=== PATIENT | male | born 1960 | race Caucasian/White ===

== ENCOUNTER 2017-02-01 12:41 | Emergency (ER) | payer OTHER ==
[2017-02-01 12:49] VITALS: TEMP 97.6; BMI 33.5
[2017-02-01] MEDS ORDERED: morphine CARPU-JECT 4 MG/1 ML DISP.SYRIN IVPUSH ONE (13:04)
[2017-02-01] MEDS ORDERED: ONDANSETRON 4 MG/2 ML VIAL IVPUSH ONE (13:04)
[2017-02-01] MEDS ORDERED: SODIUM CHLORIDE 1,000 ML IV STA (13:04)
[2017-02-01] MEDS ORDERED: morphine CARPU-JECT 4 MG/1 ML DISP.SYRIN ONE (13:05)
[2017-02-01] MEDS ORDERED: ONDANSETRON 4 MG/2 ML VIAL ONE (13:06)
[2017-02-01 13:13] LABS: URINE APPEARANCE SLCLOUDY; URINE BILIRUBIN NEGATIVE (NEGATIVE); URINE BLOOD 3+ (NEGATIVE); URINE COLOR YELLOW; URINE GLUCOSE (UA) NEGATIVE (NEGATIVE); URINE KETONE NEGATIVE (NEGATIVE); URINE LEUK ESTERASE NEGATIVE (NEGATIVE); URINE NITRITE NEGATIVE (NEGATIVE); URINE UROBILINOGEN NEGATIVE mg/dL (0.2-1.0)
[2017-02-01 13:15] LABS: BASOPHIL 0.3 % (0-2.0); EOSINOPHIL 0.2 % (0-4.5); MCH 28.6 pg (25.7-33.7); MCHC 33.2 g/dl (32.0-35.9); MEAN CELL VOLUME 86.2 fl (80-96); MEAN PLT VOLUME 7.9 fl (7.5-11.1); NEUTROPHILS 85.9 % (42.8-82.8); PLATELET COUNT 206 K/MM3 (134-434); WHITE BLOOD COUNT 10.3 K/mm3 (4.0-10.0)
[2017-02-01 13:27] LABS: URINE PROTEIN 1+ (NEGATIVE)
[2017-02-01 13:35] LABS: ALBUMIN 4.1 g/dl (3.4-5.0); ANION GAP 5 (8-16); BILIRUBIN,TOTAL 0.3 mg/dL (0.2-1.0); CALCIUM 10.8 mg/dL (8.5-10.1); CO2 32 mmol/L (21-32); CREATININE 1.2 mg/dL (0.7-1.3); GLUCOSE,RANDOM 102 mg/dL (74-106); SGOT/AST 16 U/L (15-37); SGPT/ALT 29 U/L (12-78); TOT PROT 7.6 g/dl (6.4-8.2)
[2017-02-01 13:36] LABS: ALK PHOS 78 U/L (45-117)
[2017-02-01 13:42] LABS: URINE HYALINE CAST 15 /lpf; URINE MUCUS FEW; URINE RBC 260 /hpf (0-3); YEAST FEW
--- NOTE | 2017-02-01 16:02 | PDOC ---
History of Present Illness - General History Source: Patient Exam Limitations: No Limitations - History of Present Illness Initial Comments: 02/01/17 16:02 The patient is a 56 year old male, with a significant past medical history of, who presents to the emergency department complaining of right groin pain radiating into the right flank since earlier this morning. The patient reports the pain began suddenly, and he describes it as if someone hit him on the kidney with a hammer. The patient reports the pain is similar to the kidney stone pain he has had in the past. He denies any dysuria, hematuria, frequency, or urgency. The patient reports he has followed up with urology in the past, during which the doctor recommended he purchase medications to increase urinary frequency. Patient states urologist told him he will continue to produce kidney stones. The patient denies any fever, chills, headache, or dizziness. He denies any nausea, vomiting, diarrhea, or constipation. He denies any recent travel or sick contacts. Allergies: NKDA Past Surgical History: None reported. Social History: Non smoker. No ETOH or drug use <Erik Lee - Last Filed: 02/01/17 16:02> <Vadim Palomino - Last Filed: 02/01/17 16:11> - General Chief Complaint: Pain Stated Complaint: BACK PAIN Time Seen by Provider: 02/01/17 13:04 Past History <Erik Lee - Last Filed: 02/01/17 16:02> - Past Medical History Kidney Stones: Yes Seizures: Yes - Psycho/Social/Smoking Cessation Hx Suicidal Ideation: No Smoking History: Never smoked Information on smoking cessation initiated: No <Vadim Palomino - Last Filed: 02/01/17 16:11> - Past Medical History Allergies/Adverse Reactions: Allergies Allergy/AdvReac Type Severity Reaction Status Date / Time No Known Allergies Allergy Verified 02/01/17 12:49 Home Medications: Ambulatory Orders Levetiracetam [Keppra -] 500 mg PO BID 02/01/17 Ondansetron [Zofran Odt -] 4 mg SL TID #21 od.tablet 02/01/17 Oxycodone HCl/Acetaminophen [Percocet 5-325 mg Tablet] 1 tab PO Q6H #20 tablet MDD 4 02/01/17 Review of Systems - Review of Systems Able to Perform ROS?: Yes Comments:: 02/01/17 16:03 GENERAL/CONSTITUTIONAL: No fever or chills. No weakness. HEAD, EYES, EARS, NOSE AND THROAT: No change in vision. No ear pain or discharge. No sore throat. CARDIOVASCULAR: No chest pain or shortness of breath. RESPIRATORY: No cough, wheezing, or hemoptysis. GASTROINTESTINAL: No nausea, vomiting, diarrhea or constipation. GENITOURINARY: Yes: +Right flank pain. No dysuria, frequency, or change in urination. MUSCULOSKELETAL: Yes: +Right groin pain. No joint or muscle swelling or pain. No neck or back pain. SKIN: No rash NEUROLOGIC: No headache, vertigo, loss of consciousness, or change in strength/ sensation. ENDOCRINE: No increased thirst. No abnormal weight change. HEMATOLOGIC/LYMPHATIC: No anemia, easy bleeding, or history of blood clots. ALLERGIC/IMMUNOLOGIC: No hives or skin allergy. <Itzel Leeomilsnikhil - Last Filed: 02/01/17 16:02> *Physical Exam - Vital Signs Last Vital Signs Temp Pulse Resp BP Pulse Ox 97.6 F 56 L 18 157/100 96 02/01/17 12:42 02/01/17 12:42 02/01/17 12:42 02/01/17 12:42 02/01/17 12:42 - Physical Exam Comments: 02/01/17 16:03 GENERAL: Awake, alert, and fully oriented, in no acute distress HEAD: No signs of trauma EYES: PERRLA, EOMI, sclera anicteric, conjunctiva clear ENT: Auricles normal inspection, hearing grossly normal, nares patent, oropharynx clear without exudates. Moist mucosa NECK: Normal ROM, supple, no lymphadenopathy, JVD, or masses LUNGS: Breath sounds equal, clear to auscultation bilaterally. No wheezes, and no crackles HEART: Regular rate and rhythm, normal S1 and S2, no murmurs, rubs or gallops ABDOMEN: Soft, nontender, normoactive bowel sounds. No guarding, no rebound. No masses EXTREMITIES: Normal range of motion, no edema. No clubbing or cyanosis. No cords, erythema, or tenderness NEUROLOGICAL: Cranial nerves II through XII grossly intact. Normal speech, normal gait SKIN: Warm, Dry, normal turgor, no rashes or lesions noted. <Erik Lee - Last Filed: 02/01/17 16:02> - Vital Signs Last Vital Signs Temp Pulse Resp BP Pulse Ox 97.6 F 56 L 18 157/100 96 02/01/17 12:42 02/01/17 12:42 02/01/17 12:42 02/01/17 12:42 02/01/17 12:42 <Vadim Palomino - Last Filed: 02/01/17 16:11> ED Treatment Course - LABORATORY CBC & Chemistry Diagram: 02/01/17 13:00 02/01/17 13:00 - ADDITIONAL ORDERS Additional order review: Laboratory Results 02/01/17 02/01/17 13:00 13:00 Sodium 140 Potassium 4.1 Chloride 103 Carbon Dioxide 32 Anion Gap 5 L BUN 17 Creatinine 1.2 Creat Clearance w eGFR > 60 Random Glucose 102 Calcium 10.8 H Total Bilirubin 0.3 AST 16 ALT 29 Alkaline Phosphatase 78 Total Protein 7.6 Albumin 4.1 Urine Color Yellow Urine Appearance Slcloudy Urine pH 5.0 Urine Protein 1+ H Urine Glucose (UA) Negative Urine Ketones Negative Urine Blood 3+ H Urine Nitrite Negative Urine Bilirubin Negative Urine Urobilinogen Negative Ur Leukocyte Esterase Negative Urine RBC 260 Urine WBC None Ur Epithelial Cells Rare Hyaline Casts 15 Urine Mucus Few Urine Yeast Few 02/01/17 13:00 RBC 5.34 MCV 86.2 MCHC 33.2 RDW 14.0 MPV 7.9 Neutrophils % 85.9 H Lymphocytes % 10.0 Monocytes % 3.6 L Eosinophils % 0.2 Basophils % 0.3 - RADIOLOGY Radiograph Interpretation: 02/01/17 16:03 EXAM: Renal Stone CT INTERPRETED BY: Dr. Pantoja REVIEWED BY: Dr. Palomino IMPRESSION: A 5 mm proximal right ureteral calculus is seen with resultant mild hydronephrosis as discussed above. Bilateral nonobstructing renal calculi. - Medications Given in the ED: ED Medications Discontinued Medications Generic Name Dose Route Start Last Admin Trade Name Freq PRN Reason Stop Dose Admin Sodium Chloride 1,000 mls @ 1,000 mls/hr 02/01/17 13:04 02/01/17 13:13 Normal Saline - IV 02/01/17 14:03 1,000 mls/hr ASDIR STA Administration Morphine Sulfate 4 mg 02/01/17 13:04 02/01/17 13:13 Morphine Injection - IVPUSH 02/01/17 13:05 4 mg ONCE ONE Administration Ondansetron HCl 4 mg 02/01/17 13:04 02/01/17 13:13 Zofran Injection IVPUSH 02/01/17 13:05 4 mg ONCE ONE Administration <Erik Lee - Last Filed: 02/01/17 16:02> - LABORATORY CBC & Chemistry Diagram: 02/01/17 13:00 02/01/17 13:00 - ADDITIONAL ORDERS Additional order review: Laboratory Results 02/01/17 02/01/17 13:00 13:00 Sodium 140 Potassium 4.1 Chloride 103 Carbon Dioxide 32 Anion Gap 5 L BUN 17 Creatinine 1.2 Creat Clearance w eGFR > 60 Random Glucose 102 Calcium 10.8 H Total Bilirubin 0.3 AST 16 ALT 29 Alkaline Phosphatase 78 Total Protein 7.6 Albumin 4.1 Urine Color Yellow Urine Appearance Slcloudy Urine pH 5.0 Urine Protein 1+ H Urine Glucose (UA) Negative Urine Ketones Negative Urine Blood 3+ H Urine Nitrite Negative Urine Bilirubin Negative Urine Urobilinogen Negative Ur Leukocyte Esterase Negative Urine RBC 260 Urine WBC None Ur Epithelial Cells Rare Hyaline Casts 15 Urine Mucus Few Urine Yeast Few 02/01/17 13:00 RBC 5.34 MCV 86.2 MCHC 33.2 RDW 14.0 MPV 7.9 Neutrophils % 85.9 H Lymphocytes % 10.0 Monocytes % 3.6 L Eosinophils % 0.2 Basophils % 0.3 - RADIOLOGY Radiology Studies Ordered: Category Date Time Status SPIRAL- RENAL-STONE CT [CT] Stat CT Scan 02/01/17 13:36 Completed - Medications Given in the ED: ED Medications Discontinued Medications Generic Name Dose Route Start Last Admin Trade Name Freq PRN Reason Stop Dose Admin Sodium Chloride 1,000 mls @ 1,000 mls/hr 02/01/17 13:04 02/01/17 13:13 Normal Saline - IV 02/01/17 14:03 1,000 mls/hr ASDIR STA Administration Morphine Sulfate 4 mg 02/01/17 13:04 02/01/17 13:13 Morphine Injection - IVPUSH 02/01/17 13:05 4 mg ONCE ONE Administration Ondansetron HCl 4 mg 02/01/17 13:04 02/01/17 13:13 Zofran Injection IVPUSH 02/01/17 13:05 4 mg ONCE ONE Administration <Vadim Palomino - Last Filed: 02/01/17 16:11> *DC/Admit/Observation/Transfer - Attestations Scribe Attestion: 02/01/17 16:03 Documentation prepared by Erik Lee, acting as vice president medical affairs for Vadim Palomino DO. <Erik Lee - Last Filed: 02/01/17 16:02> - Discharge Dispostion Admit: No - Attestations Physician Attestion: 02/01/17 16:11 I, Dr. Vadim Palomino, attest that this document has been prepared under my direction and personally reviewed by me in its entirety. I further attest, that it accurately reflects all work, treatment, procedures and medical decision -making performed by me. <Vadim Palomino - Last Filed: 02/01/17 16:11> Diagnosis at time of Disposition: Kidney stone - Prescriptions Prescriptions: Oxycodone HCl/Acetaminophen [Percocet 5-325 mg Tablet] 1 tab PO Q6H #20 tablet MDD 4 Ondansetron [Zofran Odt -] 4 mg SL TID #21 od.tablet - Patient Instructions Printed Discharge Instructions: DI for Kidney Stones Additional Instructions: Emeka- Call Dr. Reynoso tomorrow and take the first available appointment. This stone may not pass on its own. Return to us if worse or new symptoms occur, Best- Vadim Mancia
[2017-02-01 16:35] VITALS: BP 148/99; PULSE 60
== END 2017-02-01 17:03 | disposition home or self-care (01) ==
LOC: JER 12:41
PROC: 3E033NZ Introduction of Analgesics, Hypnotics, Sedatives into Peripheral Vein, Percutaneous Approach (ICD-10-PCS; principal; 2017-02-01)
PROC: 3E033GC Introduction of Other Therapeutic Substance into Peripheral Vein, Percutaneous Approach (ICD-10-PCS; 2017-02-01)
PROC: 3E0337Z Introduction of Electrolytic and Water Balance Substance into Peripheral Vein, Percutaneous Approach (ICD-10-PCS; 2017-02-01)
DX: N20.0 Calculus of kidney (principal); Z87.442 Personal history of urinary calculi
CPT/HCPCS: 36415; 74176; 80053; 81003; 81015; 85025; 87086; 99283-25